=== PATIENT | male | born 1965 | race Caucasian/White ===

== ENCOUNTER 2016-08-25 07:47 | Emergency (ER) | payer OTHER ==
[2016-08-25 08:42] LABS: HEMOGLOBIN 17.4 gm/dl (14.0-17.5); RED BLOOD COUNT 5.52 M/UL (4.20-5.50); WHITE BLOOD COUNT 13.1 K/UL (4.5-11.0)
[2016-08-25 09:03] LABS: BUN/CREATININE RATIO 21 (0-10)
== END 2016-08-25 12:14 | disposition home or self-care (01) ==
LOC: ER1 07:47
PROVIDERS: Family Medicine
DX: N20.0 Calculus of kidney (principal); N20.1 Calculus of ureter; F17.210 Nicotine dependence, cigarettes, uncomplicated; F41.0 Panic disorder [episodic paroxysmal anxiety]; G89.29 Other chronic pain; M54.9 Dorsalgia, unspecified; E11.65 Type 2 diabetes mellitus with hyperglycemia; Z79.02 Long term (current) use of antithrombotics/antiplatelets; Z88.8 Allergy status to other drugs, medicaments and biological substances; Z79.899 Other long term (current) drug therapy; Z95.2 Presence of prosthetic heart valve; Z87.442 Personal history of urinary calculi; Z79.84 Long term (current) use of oral hypoglycemic drugs
CPT/HCPCS: 36415; 80053; 81001; 85025; 85610; 85730; 87086; 96374; 96375; 96376; 99284; J0696; J2270; J2405; J7050